=== PATIENT | male | born 1980 | race Caucasian/White ===

== ENCOUNTER 2016-07-03 17:39 | Emergency (ER) | payer OTHER | END 2016-07-03 20:43 | disposition home or self-care (01) | LOC: FER 17:39 | DX: S31.114A Laceration without foreign body of abdominal wall, left lower quadrant without penetration into peritoneal cavity, initial encounter (principal); Z23 Encounter for immunization; Z98.890 Other specified postprocedural states; W13.8XXA Fall from, out of or through other building or structure, initial encounter; W25.XXXA Contact with sharp glass, initial encounter | CPT/HCPCS: 71020; 90471; 90715 ==